=== PATIENT | female | born 1980 | race African-American/Black ===

== ENCOUNTER 2021-03-05 09:06 | Emergency (ER) | payer SELFPAY ==
--- NOTE | 2021-03-05 10:24 | CR ---
Indication: Knee Pain Comparison: None available. Technique: Standing AP, lateral, and sunrise views right knee were obtained Findings: There is no displaced fracture or dislocation. There is [id number] degenerative change worst in the medial compartment with minimal tibial spine spurring and enthesopathic changes at the insertion of the quadriceps tendon. There is mild superficial soft tissue swelling. Impression: Mild superficial soft tissue swelling and degenerative changes of the knee without acute osseous abnormality. Dictated by Donn Montesinos MD @ 03/05/2021 10:22:48 AM (Electronically Signed)
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
== END 2021-03-05 11:46 | disposition home or self-care (01) ==
LOC: MW.ED 09:06
DX: S83.91XA Sprain of unspecified site of right knee, initial encounter (principal); W18.39XA Other fall on same level, initial encounter
CPT/HCPCS: 73562-26-RT; 73562-RT; 99284-25

== ENCOUNTER 2021-07-14 03:48 | Emergency (ER) | payer BC ==
[2021-07-14 04:42] LABS: CORONAVIRUS COVID-19 NAA NEGATIVE (NEGATIVE); INFLUENZA A NAA POSITIVE (NEGATIVE); INFLUENZA B NAA NEGATIVE (NEGATIVE)
== END 2021-07-14 05:59 | disposition home or self-care (01) ==
LOC: MERGE 03:48 → MW.ED 03:48
DX: J10.1 Influenza due to other identified influenza virus with other respiratory manifestations (principal); E66.9 Obesity, unspecified; Z68.42 Body mass index [BMI] 45.0-49.9, adult; Z20.822 Contact with and (suspected) exposure to COVID-19
CPT/HCPCS: 0240U; 71045; 99283

== ENCOUNTER 2022-01-29 00:59 | Emergency (ER) | payer MEDICAID ==
[2022-01-29] MEDS ORDERED: Ketorolac 30 MG/ML SDV IVPUSH ONE (01:06)
[2022-01-29] MEDS ORDERED: Dexamethasone 10 MG/ML SDV IVPUSH ONE (01:06)
[2022-01-29 01:54] LABS: CARBON DIOXIDE,CO2 23.7 mmol/L (21.0-32.0); POTASSIUM,K 4.9 mmol/L (3.5-5.1)
[2022-01-29] MEDS ORDERED: Acetaminophen/oxyCODONE 325-5 MG Tab PO ONE (02:20)
== END 2022-01-29 02:31 | disposition home or self-care (01) ==
LOC: MW.ED 00:59
DX: M54.12 Radiculopathy, cervical region (principal); E66.9 Obesity, unspecified; Z68.42 Body mass index [BMI] 45.0-49.9, adult
CPT/HCPCS: 36415; 70450; 72125; 80053; 83735; 85025; 96374; 96375; 99284; A9270; J1100; J1885; J3360

== ENCOUNTER 2022-09-03 04:12 | Emergency (ER) | payer MEDICAID ==
[2022-09-03] MEDS ORDERED: Dexamethasone 10 MG/ML SDV IM STA (04:47)
[2022-09-03] MEDS ORDERED: Ketorolac 30 MG/ML SDV IVPUSH ONE (04:48)
[2022-09-03] MEDS ORDERED: Acetaminophen/HYDROcodone 325-5 MG Tab PO ONE (04:48)
[2022-09-03 06:52] LABS: CARBON DIOXIDE,CO2 22.9 mmol/L (21.0-32.0); POTASSIUM,K 4.2 mmol/L (3.5-5.1)
== END 2022-09-03 07:14 | disposition home or self-care (01) ==
LOC: MW.ED 04:12
DX: M54.9 Dorsalgia, unspecified (principal); D64.9 Anemia, unspecified; E66.9 Obesity, unspecified; Z68.43 Body mass index [BMI] 50.0-59.9, adult; Z91.013 Allergy to seafood; Z79.899 Other long term (current) drug therapy; Z98.890 Other specified postprocedural states
CPT/HCPCS: 36415; 71046; 80053; 85025; 96372; 96374; 96375; 99284; A9270; J1100; J1885; J3360; 99283

== ENCOUNTER 2023-04-07 10:42 | Emergency (ER) | payer SELFPAY ==
[2023-04-07] MEDS ORDERED: Ketorolac 30 MG/ML SDV IVPUSH ONE (11:09)
[2023-04-07] MEDS ORDERED: Metoclopramide 10 MG/2 ML SDV IVPUSH ONE (11:09)
[2023-04-07] MEDS ORDERED: Ondansetron 4 MG/2 ML SDV IVPUSH ONE (11:09)
[2023-04-07] MEDS ORDERED: Sodium Chloride 0.9% 1,000 ML IV ONE (11:09)
[2023-04-07] MEDS ORDERED: diphenhydrAMINE 50 MG/ML SDV IVPUSH ONE (11:09)
== END 2023-04-07 13:16 | disposition home or self-care (01) ==
LOC: MW.ED 10:42
DX: G43.909 Migraine, unspecified, not intractable, without status migrainosus (principal); E66.9 Obesity, unspecified; Z68.43 Body mass index [BMI] 50.0-59.9, adult; Z91.09 Other allergy status, other than to drugs and biological substances
CPT/HCPCS: 70450; 96361; 96374; 96375; 99283; J1200; J1885; J2405; J2765; J7030; 99284

== ENCOUNTER 2023-11-26 09:12 | Emergency (ER) | payer MEDICAID | END 2023-11-26 10:06 | disposition home or self-care (01) | LOC: MW.ED 09:12 | DX: M62.830 Muscle spasm of back (principal); Z91.013 Allergy to seafood; Z79.899 Other long term (current) drug therapy; Z90.49 Acquired absence of other specified parts of digestive tract | CPT/HCPCS: 99283 ==

== ENCOUNTER 2023-12-01 08:06 | Emergency (ER) | payer MEDICAID ==
[2023-12-01] MEDS: Ondansetron 4 MG/2 ML SDV IVPUSH ONE (08:36)
[2023-12-01] MEDS: Lidocaine 4% 1 each Patch TOP ONE (08:36)
[2023-12-01] MEDS: Sodium Chloride 0.9% 2.5 ML Syringe FLUSH PRN (08:36)
[2023-12-01] MEDS: Morphine 2 MG/ML SYRINGE IVPUSH ONE (08:36)
[2023-12-01] MEDS: Sodium Chloride 0.9% 10 ML Syringe FLUSH PRN (08:36)
[2023-12-01 08:43] LABS: BASOPHILS ABSOLUTE AUTO 0.04 K/uL (0.00-0.20); BASOPHILS PERCENT AUTO 0.5 % (0.0-1.0); EOSINOPHILS ABSOLUTE AUTO 0.22 K/uL (0.00-0.45); EOSINOPHILS PERCENT AUTO 2.7 % (0.0-6.0); HEMATOCRIT 33.2 % (37.0-47.0); HEMOGLOBIN 10.2 g/dL (12.0-16.0); IMMATURE GRAN ABSOLUTE AUTO 0.02 K/uL (0.00-0.05); IMMATURE GRAN PERCENT AUTO 0.2 % (0.0-0.4); LYMPHOCYTES ABSOLUTE AUTO 2.97 K/uL (1.00-4.80); LYMPHOCYTES PERCENT AUTO 36.9 % (24.0-44.0); MEAN CORPUSCULAR HEMOGLOBIN 21.4 pg (28.0-32.0); MEAN CORPUSCULAR HGB CONC 30.7 g/dL (32.0-36.0); MEAN CORPUSCULAR VOLUME 69.6 fL (83.0-99.0); MEAN PLATELET VOLUME 10.6 fL (9.4-12.3); MONOCYTES ABSOLUTE AUTO 0.73 K/uL (0.00-0.80); MONOCYTES PERCENT AUTO 9.1 % (0.0-8.0); NEUTROPHILS ABSOLUTE AUTO 4.07 K/uL (1.80-7.70); NEUTROPHILS PERCENT AUTO 50.6 % (41.0-71.0); PLATELET COUNT,PLT 340 K/uL (150-400); RED BLOOD CELL COUNT 4.77 M/uL (4.10-5.30); WHITE BLOOD CELL COUNT,WBC 8.05 K/uL (3.9-11.3)
[2023-12-01 08:59] LABS: INR 0.96 (0.86-1.11); PTT,PARTIAL THROMBOPLSTIN TIME 23.9 SEC (23.9-30.7)
[2023-12-01 09:09] LABS: A/G RATIO 0.7 (0.9-1.6); ALBUMIN 3.1 g/dL (3.4-5.0); BILIRUBIN TOTAL 0.3 mg/dL (0.2-1.0); CALCIUM 8.5 mg/dL (8.5-10.1); CARBON DIOXIDE,CO2 22.9 mmol/L (21.0-32.0); CREATININE 0.9 mg/dL (0.6-1.0); EST CRCL DRUG DOSING (CG) 69.6 mL/min; POTASSIUM,K 3.8 mmol/L (3.5-5.1); PROTEIN TOTAL,TP 7.8 g/dL (6.4-8.2)
[2023-12-01] MEDS: Morphine 4 MG/ML Syringe IVPUSH ONE (09:09)
[2023-12-01 11:27] LABS: BILIRUBIN,URINE NEGATIVE (NEGATIVE); COLOR,URINE YELLOW; GLUCOSE,URINE NEGATIVE (NEGATIVE); KETONES,URINE NEGATIVE (NEGATIVE); LEUKOCYTE ESTERASE,URINE NEGATIVE (NEGATIVE); NITRITE,URINE NEGATIVE (NEGATIVE); OCCULT BLOOD,URINE NEGATIVE (NEGATIVE); PROTEIN,URINE NEGATIVE (NEGATIVE); UROBILINOGEN,URINE 0.2 EU/dL (<2.0)
[2023-12-01 11:30] LABS: APPEARANCE,URINE HAZY
[2023-12-01] MEDS: Acetaminophen/HYDROcodone 325-5 MG Tab PO ONE (14:31)
== END 2023-12-01 14:34 | disposition home or self-care (01) ==
LOC: MW.ED 08:06
DX: R32 Unspecified urinary incontinence (principal); M54.9 Dorsalgia, unspecified; Z91.013 Allergy to seafood; Z79.899 Other long term (current) drug therapy; Z90.49 Acquired absence of other specified parts of digestive tract
CPT/HCPCS: 36415; 71045; 72146; 72148; 80053; 81003; 83690; 84484; 84703; 85025; 85610; 85730; 93005; 96374; 96376; 99284; A9270; J2270; J2405; J3490; 93010

== ENCOUNTER 2024-02-24 19:25 | Emergency (ER) | payer MEDICAID | END 2024-02-25 05:00 | disposition left against medical advice (07) | LOC: MW.ED 19:25 | DX: Z53.21 Procedure and treatment not carried out due to patient leaving prior to being seen by health care provider (principal) ==

== ENCOUNTER 2024-06-17 07:05 | Emergency (ER) | payer MEDICAID ==
[2024-06-17 07:24] LABS: BASOPHILS ABSOLUTE AUTO 0.06 K/uL (0.00-0.20); BASOPHILS PERCENT AUTO 1.1 % (0.0-1.0); EOSINOPHILS ABSOLUTE AUTO 0.12 K/uL (0.00-0.45); EOSINOPHILS PERCENT AUTO 2.2 % (0.0-6.0); HEMOGLOBIN 11.7 g/dL (12.0-16.0); LYMPHOCYTES ABSOLUTE AUTO 1.91 K/uL (1.00-4.80); LYMPHOCYTES PERCENT AUTO 34.8 % (24.0-44.0); MEAN CORPUSCULAR HEMOGLOBIN 25.2 pg (28.0-32.0); MEAN CORPUSCULAR HGB CONC 32.5 g/dL (32.0-36.0); MEAN CORPUSCULAR VOLUME 77.4 fL (83.0-99.0); MEAN PLATELET VOLUME 11.1 fL (9.4-12.3); MONOCYTES PERCENT AUTO 10.9 % (0.0-8.0); PLATELET COUNT,PLT 274 K/uL (150-400); RED BLOOD CELL COUNT 4.65 M/uL (4.10-5.30); WHITE BLOOD CELL COUNT,WBC 5.49 K/uL (3.9-11.3)
[2024-06-17 07:49] LABS: A/G RATIO 0.7 (0.9-1.6); BILIRUBIN TOTAL 0.6 mg/dL (0.2-1.0); CALCIUM 8.4 mg/dL (8.5-10.1); CARBON DIOXIDE,CO2 25.7 mmol/L (21.0-32.0); CREATININE 0.9 mg/dL (0.6-1.0); EST CRCL DRUG DOSING (CG) 72.53 mL/min; POTASSIUM,K 3.7 mmol/L (3.5-5.1); PROTEIN TOTAL,TP 7.5 g/dL (6.4-8.2)
[2024-06-17] MEDS: Lidocaine 4% 1 each Patch TOP PRN (08:03)
[2024-06-17] MEDS: Acetaminophen/HYDROcodone 325-10 MG Tab PO ONE (08:03)
[2024-06-17 08:05] LABS: APPEARANCE,URINE CLEAR; BILIRUBIN,URINE NEGATIVE (NEGATIVE); COLOR,URINE YELLOW; GLUCOSE,URINE NEGATIVE (NEGATIVE); KETONES,URINE NEGATIVE (NEGATIVE); LEUKOCYTE ESTERASE,URINE NEGATIVE (NEGATIVE); NITRITE,URINE NEGATIVE (NEGATIVE); OCCULT BLOOD,URINE NEGATIVE (NEGATIVE); PH,URINE 6.5 (5.0-8.0); PROTEIN,URINE NEGATIVE (NEGATIVE); UROBILINOGEN,URINE 0.2 EU/dL (<2.0)
== END 2024-06-17 09:31 | disposition home or self-care (01) ==
LOC: MW.ED 07:05
DX: M79.672 Pain in left foot (principal); M54.9 Dorsalgia, unspecified; M54.2 Cervicalgia; E66.9 Obesity, unspecified; Z90.49 Acquired absence of other specified parts of digestive tract; Z79.899 Other long term (current) drug therapy; Z91.013 Allergy to seafood; Z75.8 Other problems related to medical facilities and other health care; Z68.43 Body mass index [BMI] 50.0-59.9, adult
CPT/HCPCS: 36415; 51798; 80053; 81003; 85025; 99284; A9270

== ENCOUNTER 2024-09-05 16:55 | Emergency (ER) | payer MEDICAID ==
[2024-09-05 17:28] LABS: APPEARANCE,URINE SLT CLOUDY; BILIRUBIN,URINE NEGATIVE (NEGATIVE); COLOR,URINE YELLOW; GLUCOSE,URINE NEGATIVE (NEGATIVE); KETONES,URINE NEGATIVE (NEGATIVE); LEUKOCYTE ESTERASE,URINE NEGATIVE (NEGATIVE); NITRITE,URINE NEGATIVE (NEGATIVE); OCCULT BLOOD,URINE NEGATIVE (NEGATIVE); PROTEIN,URINE NEGATIVE (NEGATIVE); UROBILINOGEN,URINE 0.2 EU/dL (<2.0)
[2024-09-05] MEDS: Sodium Chloride 0.9% 1,000 ML IV ONE (17:32)
[2024-09-05 17:39] LABS: BASOPHILS ABSOLUTE AUTO 0.05 K/uL (0.00-0.20); BASOPHILS PERCENT AUTO 0.7 % (0.0-1.0); EOSINOPHILS ABSOLUTE AUTO 0.23 K/uL (0.00-0.45); EOSINOPHILS PERCENT AUTO 3.1 % (0.0-6.0); HEMOGLOBIN 11.9 g/dL (12.0-16.0); IMMATURE GRAN ABSOLUTE AUTO 0.01 K/uL (0.00-0.05); IMMATURE GRAN PERCENT AUTO 0.1 % (0.0-0.4); LYMPHOCYTES ABSOLUTE AUTO 2.59 K/uL (1.00-4.80); LYMPHOCYTES PERCENT AUTO 35.2 % (24.0-44.0); MEAN CORPUSCULAR HEMOGLOBIN 24.3 pg (28.0-32.0); MEAN CORPUSCULAR HGB CONC 32.2 g/dL (32.0-36.0); MEAN CORPUSCULAR VOLUME 75.5 fL (83.0-99.0); MEAN PLATELET VOLUME 10.8 fL (9.4-12.3); MONOCYTES PERCENT AUTO 10.9 % (0.0-8.0); NEUTROPHILS ABSOLUTE AUTO 3.67 K/uL (1.80-7.70); PLATELET COUNT,PLT 291 K/uL (150-400); WHITE BLOOD CELL COUNT,WBC 7.35 K/uL (3.9-11.3)
[2024-09-05 18:09] LABS: A/G RATIO 0.7 (0.9-1.6); ALBUMIN 3.1 g/dL (3.4-5.0); BILIRUBIN TOTAL 0.3 mg/dL (0.2-1.0); CALCIUM 8.9 mg/dL (8.5-10.1); CARBON DIOXIDE,CO2 26.1 mmol/L (21.0-32.0); CREATININE 0.9 mg/dL (0.6-1.0); EST CRCL DRUG DOSING (CG) 72.53 mL/min; MAGNESIUM 1.7 mg/dL (1.8-2.4); POTASSIUM,K 4.3 mmol/L (3.5-5.1); PROTEIN TOTAL,TP 7.7 g/dL (6.4-8.2)
[2024-09-05] MEDS: Ketorolac 30 MG/ML SDV IVPUSH ONE (18:36)
[2024-09-05 19:39] LABS: CANDIDA DNA PROBE NEGATIVE (NEGATIVE); GARDNERELLA DNA PROBE POSITIVE (NEGATIVE); TRICHOMONAS DNA PROBE NEGATIVE (NEGATIVE)
[2024-09-05 20:22] LABS: C. TRACHOMATIS BY PCR NOT DETECTED; N. GONORRHOEAE BY PCR NOT DETECTED
[2024-09-05] MEDS: metroNIDAZOLE 250 MG Tab PO ONE (20:48)
== END 2024-09-05 20:54 | disposition home or self-care (01) ==
LOC: MW.ED 16:55
DX: N76.0 Acute vaginitis (principal); Z91.013 Allergy to seafood; Z79.899 Other long term (current) drug therapy; Z90.49 Acquired absence of other specified parts of digestive tract; Z75.8 Other problems related to medical facilities and other health care
CPT/HCPCS: 36415; 80053; 81003; 81025; 83690; 83735; 84703; 85025; 87480; 87491; 87510; 87591; 87660; 96361; 96374; 99284; A9270; J1885; J7030

== ENCOUNTER 2025-02-11 12:26 | Emergency (ER) | payer MEDICAID ==
[2025-02-11] MEDS: Ketorolac 30 MG/ML SDV IM ONE (12:56)
[2025-02-11] MEDS: Orphenadrine 60 MG/2 ML Inj IM ONE (12:57)
== END 2025-02-11 13:48 | disposition home or self-care (01) ==
LOC: MW.ED 12:26
DX: M79.662 Pain in left lower leg (principal); Z75.3 Unavailability and inaccessibility of health-care facilities; Z91.013 Allergy to seafood; Z79.899 Other long term (current) drug therapy; Z90.49 Acquired absence of other specified parts of digestive tract
CPT/HCPCS: 96372; 99283; J1885; J2360

== ENCOUNTER 2025-05-16 10:25 | Emergency (ER) | payer BC, MEDICAID ==
[2025-05-16 10:57] LABS: BASOPHILS ABSOLUTE AUTO 0.05 K/uL (0.00-0.20); BASOPHILS PERCENT AUTO 0.8 % (0.0-1.0); EOSINOPHILS ABSOLUTE AUTO 0.24 K/uL (0.00-0.45); EOSINOPHILS PERCENT AUTO 4.0 % (0.0-6.0); IMMATURE GRAN ABSOLUTE AUTO 0.01 K/uL (0.00-0.05); IMMATURE GRAN PERCENT AUTO 0.2 % (0.0-0.4); LYMPHOCYTES ABSOLUTE AUTO 2.36 K/uL (1.00-4.80); LYMPHOCYTES PERCENT AUTO 39.0 % (24.0-44.0); MEAN PLATELET VOLUME 10.3 fL (9.4-12.3); MONOCYTES ABSOLUTE AUTO 0.58 K/uL (0.00-0.80); MONOCYTES PERCENT AUTO 9.6 % (0.0-8.0); NEUTROPHILS ABSOLUTE AUTO 2.81 K/uL (1.80-7.70); NEUTROPHILS PERCENT AUTO 46.4 % (41.0-71.0); NRBC ABSOLUTE 0.00 K/uL (0.00-0.02); NRBC PERCENT 0.0 /100WBC (0.0-0.2); PLATELET COUNT,PLT 287 K/uL (150-400); RED BLOOD CELL COUNT 4.87 M/uL (4.10-5.30); WHITE BLOOD CELL COUNT,WBC 6.05 K/uL (3.9-11.3)
[2025-05-16 11:12] LABS: INR < 0.93 (0.86-1.11); PTT,PARTIAL THROMBOPLSTIN TIME 22.5 SEC (23.9-30.7)
[2025-05-16 11:32] LABS: A/G RATIO 0.8 (0.9-1.6); ALANINE AMINOTRANSFERASE,ALT 36 IU/L (14-63); ASPARTATE AMNIOTRANSFERASE,AST 22 IU/L (15-37); BILIRUBIN TOTAL 0.3 mg/dL (0.2-1.0); BLOOD UREA NITROGEN,BUN 17 mg/dL (7.0-18.0); CARBON DIOXIDE,CO2 27.2 mmol/L (21.0-32.0); CHLORIDE,CL 105 mmol/L (98-107); CREATININE 0.8 mg/dL (0.6-1.0); EST CRCL DRUG DOSING (CG) 93.78 mL/min; GLUCOSE RANDOM 92 mg/dL (74-106); POTASSIUM,K 3.9 mmol/L (3.5-5.1); PROTEIN TOTAL,TP 7.4 g/dL (6.4-8.2); SODIUM,NA 138 mmol/L (136-145)
[2025-05-16 11:35] LABS: ESTIMATED GFR 93 mL/min (>60); HCG QUANTITATIVE < 1.0 mIU/mL
== END 2025-05-16 17:21 | disposition home or self-care (01) ==
LOC: MW.ED 10:25
DX: N80.03 Adenomyosis of the uterus (principal); N83.201 Unspecified ovarian cyst, right side; Z75.3 Unavailability and inaccessibility of health-care facilities; Z91.013 Allergy to seafood; Z79.899 Other long term (current) drug therapy
CPT/HCPCS: 36415; 76830; 76857; 80053; 84484; 84702; 85025; 85610; 85730; 86850; 86900; 86901; 96360; 99284; J7030